=== PATIENT | male | born 1965 | race African-American/Black ===

== ENCOUNTER 2016-09-06 11:08 | Emergency (ER) | payer BC | END 2016-09-06 11:15 | disposition other institution (70) | LOC: CED 11:08 | DX: S61.215A Laceration without foreign body of left ring finger without damage to nail, initial encounter (principal); S61.217A Laceration without foreign body of left little finger without damage to nail, initial encounter; W26.0XXA Contact with knife, initial encounter; Y92.009 Unspecified place in unspecified non-institutional (private) residence as the place of occurrence of the external cause | CPT/HCPCS: 99285 ==